=== PATIENT | female | born 1980 | race Caucasian/White ===

== ENCOUNTER → 2018-06-05 14:23 | Outpatient (CLI) | payer MEDICAID, SELFPAY ==
[2018-06-05 17:25] LABS: Chlamydia Trachomatis by PCR Negative (Negative); Neisserai gonorrhoeae by PCR Negative (Negative); Probe Check PASS; Sample Adequacy Control PASS; Specimen Processing Control PASS
[2018-06-08 10:58] LABS: HPV APTIMA, High Risk Negative (Negative)
== END ==
PROVIDERS: Visit Provider Obstetrics & Gynecology
DX: Z12.4 Encounter for screening for malignant neoplasm of cervix (principal); Z11.3 Encounter for screening for infections with a predominantly sexual mode of transmission
CPT/HCPCS: 87491; 87591; 87624; 88175; G0145

== ENCOUNTER → 2018-10-26 09:12 | Outpatient (CLI) | payer MEDICAID, SELFPAY ==
[2014-11-25 23:40] VITALS: BMI 32.5
[2018-10-26 12:28] LABS: Anion Gap 6 (5-15); BUN 13 mg/dL (7-18); Calcium,Total 8.5 mg/dL (8.5-10.1); Chloride 111 mmol/L (98-107); Creatinine, Serum 0.86 mg/dL (0.55-1.02); EST Glomerular Filtration Rate 79 mL/min (>60); Est Glom Filt Rate - Afr Amer 95 mL/min (>60); Glucose 71 mg/dL (74-106); Potassium 4.8 mmol/L (3.5-5.1); Sodium Level 138 mmol/L (136-145)
[2018-10-26 12:57] LABS: Absolute Lymphocyte Count 2.68 X10^3/uL (0.83-4.51); Absolute Neutrophil Count 5.5 X10^3/uL (2.0-7.7); Basophil% 1.1 % (0-1); Eosinophil# 0.17 X10^3/uL; Eosinophils% 1.9 % (0-5); Hematocrit 44.4 % (37-47); Hemoglobin 14.7 g/dL (12.0-15.0); Lymphocyte # 2.68 X10^3/ul (4.0); Lymphocyte % 29.3 % (19-41); Mean Corp Hgb Conc 33.1 g/dL (32-36); Mean Corpuscular Hgb 30.7 pg (27.0-32.0); Mean Corpuscular Volume 92.7 fL (81-99); Monocyte# 0.71 X10^3/uL; Monocyte% 7.8 % (0-10); NRBC Flagged by Analyzer 0 % (0-5); Neutrophil # 5.48 X10^3/uL (2.7-7.7); Neutrophil % 59.8 % (47-70); Platelet Count 278 K/mm3 (150-450); RBC Distribution Width CV 13.6 % (11.6-14.6); RBC Distribution Width SD 46.4 fl (35.1-43.9); Red Blood Count 4.79 M/mm3 (4.2-5.4); White Blood Count 9.2 K/mm3 (4.4-11.0)
[2018-10-26 12:59] LABS: Erythrocyte Sedimentation Rate 1 mm/hr (0-20)
== END ==
PROVIDERS: Family Provider Family Medicine; PCP Family Medicine; Referring Provider Family Medicine; Visit Provider Family Medicine
DX: M25.441 Effusion, right hand (principal)
CPT/HCPCS: 36415; 80048; 85025; 85652

== ENCOUNTER 2018-12-16 11:58 | Emergency (ER) | payer MEDICAID, SELFPAY ==
[2018-12-16 11:59] VITALS: BP 154/87; PULSE 107; RESP 16; TEMP 36.7; O2SAT 99; BMI 25.4
[2018-12-16 12:34] LABS: Bacteria 0 SEEN /hpf (None Seen); Mucous, Urine 0 SEEN /hpf (<or=2+); Red Blood Cells-Urine 0 SEEN /hpf (0-5); White Blood Cells 0 SEEN /hpf (0-5)
[2018-12-16 12:49] LABS: Color, Urine Yellow (Yellow); Glucose, Dipstick Normal (Normal); Internal QC Validated? YES +Cl - CLEAR BKGD; Ketone-Dipstick 5 mg/dl (Negative); Leukocyte Esterase-Dipstick Negative /ul (Negative); Nitrite-Dipstick Negative (Negative); Occult Blood-Urine Negative /ul (Negative); Protein-Dipstick 15 mg/dl (Negative); Urine Bilirubin Dipstick Negative (Negative); Urine Clarity Sl. Cloudy (Clear); Urine Urobilinogen Normal (Normal)
[2018-12-16 12:50] LABS: Pregnancy, Urine Negative Negative
--- NOTE | 2018-12-16 12:55 | ED.DCSUM_ITS ---
- ER Visit Summary Date of Service: 12/16/18 Chief Complaint: Vaginal discharge History of Present Illness: The patient is a 38 F presenting with vaginal discharge. Patient states this started 1.5 weeks ago. She states prior to the vaginal discharge starting she had sexual intercourse with her ex. She is concerned but unsure if she was exposed to STDs. She denies possibility of . She denies vaginal bleeding. Denies dysuria. Denies fever. Physical Examination: Vitals are stable. Patient is afebrile. Alert no acute distress. HEENT exam is unremarkable. Neck is supple. Lungs are clear and equal bilaterally. Heart is regular rate and rhythm. Abdomen is soft nontender nondistended. No guarding or rebound. : No cervical motion tenderness, no adnexal tenderness. No discharge, no bleeding. No rash. Extremities are unremarkable. Skin is warm and dry. Remainder of exam is unremarkable. Emergency Department Course and Treatment: Urinalysis unremarkable. hCG negative. GC chlamydia are pending. Patient was given Rocephin IM, Zithromax, Flagyl. She is advised to follow-up with her [employer]. Advised return to ED for worsening complaints. Disposition: Discharge home Impression: Vaginal discharge This note was generated with [employer] dictation software. It may contain incorrect words, spelling, and punctuation that were not noted in review of the chart prior to signing ED Disposition - Plan for ED Patient: Instructions: Understanding STDs Referrals: Remington Alatorre MD [Primary Care Provider] - Rubia Westbrook MD [STAFF PHYSICIAN] -
[2018-12-16 12:56] LABS: Calcium Oxalate Crystals Ur 2+ /hpf (<or=2+); Squamous Epithelial Cells - UA 0-5 SEEN /hpf (5-10)
--- NOTE | 2018-12-16 13:05 | ED.DEP ---
ED Disposition - Plan for ED Patient: Instructions: Understanding STDs Referrals: Remington Alatorre MD [Primary Care Provider] - Rubia Westbrook MD [STAFF PHYSICIAN] -
[2018-12-16] MEDS: metroNIDAZOLE 500 MG Tablet 2000 MG PO (13:39)
[2018-12-16] MEDS: Ceftriaxone 500 MG Vial 250 MG IM (13:39)
[2018-12-16] MEDS: Azithromycin 250 MG Tablet 1000 MG PO (13:39)
[2018-12-16 14:05] VITALS: RESP 18
[2018-12-16 14:41] LABS: Chlamydia Trachomatis by PCR Negative (Negative); Neisserai gonorrhoeae by PCR Negative (Negative); Probe Check PASS; Sample Adequacy Control PASS; Specimen Processing Control PASS
== END 2018-12-16 14:06 | disposition home or self-care (01) ==
LOC: ED 12:36
PROVIDERS: Emergency Provider Emergency Medicine; Family Provider Family Medicine; PCP Family Medicine
DX: N89.8 Other specified noninflammatory disorders of vagina (principal); Z72.0 Tobacco use
CPT/HCPCS: 81001; 81025; 87491; 87591; 96372; 99283

== ENCOUNTER → 2019-11-09 15:40 | Outpatient (CLI) | payer MEDICAID, SELFPAY ==
[2019-11-12 11:13] LABS: HIV - WCH Non-Reactive (Nonreactive); Hepatitis B Surface Antibody Non-Reactive; Hepatitis C Antibody Non-Reactive (Nonreactive)
[2019-11-15 11:06] LABS: Rapid Plasmin Reagin (RPR) NONREACTIVE (NONREACTIVE)
== END ==
PROVIDERS: PCP Family Medicine; Visit Provider Student in an Organized Health Care Education/Training Program
DX: Z11.3 Encounter for screening for infections with a predominantly sexual mode of transmission (principal)
CPT/HCPCS: 36415; 86592; 86703; 86706; 86803

== ENCOUNTER → 2021-02-03 11:50 | Outpatient (CLI) | payer MEDICAID, SELFPAY ==
--- NOTE | 2021-02-03 11:53 | RAD_ITS ---
STUDY: X-RAY - RIGHT HAND REASON FOR EXAM: Right hand pain, no specific injury. TECHNIQUE: 3 view(s) of the hand. COMPARISON: None. FINDINGS: Normal radiocarpal articulation. Normal distal radioulnar joint. Normal visualized carpal bones. Normal carpal articulations Normal carpometacarpal articulation of the thumb. Normal second through fifth carpometacarpal joints. Normal metacarpi. Normal metacarpophalangeal joint of the thumb. Normal interphalangeal joint of the thumb. Normal proximal and distal phalanges of the thumb. Normal metacarpophalangeal joints of the second through fifth fingers. Normal proximal and distal interphalangeal joints of the second through fifth fingers. Normal phalanges of the second through fifth fingers. The soft tissue structures are unremarkable. RAD/Hand Min 3 Views IMPRESSION: Normal x-ray examination of the right hand. Electronically Signed: Miquel Taveras MD at 12:53 EDT Tel , Service support ,
== END ==
PROVIDERS: PCP Family Medicine; Referring Provider Family Medicine; Visit Provider Family Medicine
DX: M79.644 Pain in right finger(s) (principal)
CPT/HCPCS: 73130

== ENCOUNTER 2021-04-21 13:15 | Outpatient (CLI) | payer MEDICAID, SELFPAY ==
[2021-04-23 00:07] LABS: Chlamydia By Nucleic Acid AMP Negative (Negative)
[2021-04-23 08:39] LABS: Gonococcus By Nucleic Acid AMP Negative (Negative)
[2021-04-24 09:56] LABS: HPV APTIMA, High Risk Negative (Negative)
== END 2021-04-21 23:59 | disposition short-term general hospital (02) ==
LOC: LABSPEC 13:16
PROVIDERS: PCP Family Medicine; Visit Provider Obstetrics & Gynecology
DX: Z12.4 Encounter for screening for malignant neoplasm of cervix (principal); Z11.3 Encounter for screening for infections with a predominantly sexual mode of transmission
CPT/HCPCS: 87491; 87591; 87624; 88175; G0145

== ENCOUNTER → 2021-07-21 | Outpatient (CLI) | payer MEDICAID, SELFPAY ==
--- NOTE | 2021-07-21 12:52 | BI_ITS ---
MAMMOGRAPHY - BILATERAL SCREENING 3-D TOMOSYNTHESIS REASON FOR EXAM: Female, 40 years old. SCREENING PERTINENT HISTORY: No significant family history. TECHNIQUE: 2-D mammograms and 3-D Tomosynthesis of the breast (s) were performed. CAD was performed. COMPARISON: None. FINDINGS: The breast composition is heterogeneously dense that can obscure small breast masses. Scattered benign calcifications are seen. No dense spiculated masses or suspicious microcalcifications are identified. No architectural distortion is identified. There is no skin thickening or retraction. There has been no significant change since the prior study. BI/SCRN MAMM (CAD)W/JUAN M BILAT IMPRESSION: No mammographic signs of malignancy. Routine yearly mammograms recommended. ASSESSMENT CATEGORY: BIRADS Category 1: Negative. A letter regarding these results will be sent to the patient by the facility within 30 days. FOLLOW UP RECOMMENDATION: Yearly follow up mammogram recommended. (A) Approximately 10% of breast cancers are not detected by mammography. A normal mammogram should not delay biopsy of a clinically suspicious abnormality. Electronically Signed: Tru Wells MD at 15:19 EDT ,
== END | disposition home or self-care (01) ==
LOC: OPBI 12:51
PROVIDERS: PCP Family Medicine; Visit Provider Obstetrics & Gynecology
DX: Z12.31 Encounter for screening mammogram for malignant neoplasm of breast (principal)
CPT/HCPCS: 77063; 77067

== ENCOUNTER → 2022-02-02 | Outpatient (CLI) | payer MEDICAID, SELFPAY ==
--- NOTE | 2022-02-02 12:28 | LES_PTH ---
PATIENT: LORY UMANZOR LOC: [facility] U#:[id number] AGE/SX: 41/F ROOM: RE02/02/[address]: Dr. Devyn Alatorre MD : 1980 BED: DIS: 02/02/2022 SPEC #: [id number] RECD: 02/02/22 15:08 STATUS: JEFF SAMANTHA #: [id number] DIANE: 02/02/22 12:[address]: Devyn Alatorre DEPT: SURGICAL PATHOLOGY RECD BY: Yun Lloyd Tissues: Abdomen, NOS Procedures: Surgery Specimen Level IV HEADER OPERATION: Excision left upper quadrant abdomen PRE-OP DIAGNOSIS: ? hemangioma TISSUE SUBMITTED: Left upper quadrant abdomen MICROSCOPIC DIAGNOSIS Skin lesion of left upper quadrant, punch biopsy: Capillary hemangioma. AM:ayesha 02/04/2022 MICROSCOPIC DESCRIPTION Slides are reviewed. GROSS DESCRIPTION Received in fixative is one container labeled with the patient's name and designated left upper quadrant. The specimen consists of a light granados punch biopsy of skin measuring 4 cm in diameter and 2 cm in thickness. The specimen is inked and totally submitted in one cassette. / AM:ayesha 02/03/2022 TC:5 CPT: 44776
== END | disposition home or self-care (01) ==
LOC: LABSPEC 15:15
PROVIDERS: PCP Family Medicine; Visit Provider Family Medicine
DX: D18.01 Hemangioma of skin and subcutaneous tissue (principal)
CPT/HCPCS: 88305

== ENCOUNTER → 2022-04-21 | Outpatient (CLI) | payer MEDICAID, SELFPAY ==
[2022-04-21 11:36] LABS: Hemoglobin 14.6 g/dL (12.0-15.0); Mean Corp Hgb Conc 32.4 g/dL (32-36); Mean Corpuscular Hgb 29.7 pg (27.0-32.0); Mean Corpuscular Volume 91.5 fL (81-99); Mean Platelet Vol. 9.8 fl (6.2-12.0); Platelet Count 345 K/mm3 (150-450); RBC Distribution Width CV 14.5 % (11.6-14.6); RBC Distribution Width SD 48.8 fl (35.1-43.9); Red Blood Count 4.92 M/mm3 (4.2-5.4); White Blood Count 11.6 K/mm3 (4.4-11.0)
[2022-04-21 12:14] LABS: Estradiol 54.3 pg/mL; Follicle Stimulating Hormone 11.2 mIU/mL; Prolactin 6.6 ng/mL; T4 Free Direct 0.82 ng/dL (0.76-1.46)
[2022-04-21 12:35] LABS: HIV - WCH Non-Reactive (Nonreactive); Progesterone Level 0.32 ng/mL (See Comment); Syphilis Antibodies Non-reactive
[2022-04-22 05:07] LABS: HEPATITIS B SURFACE AG Negative (Negative); Hepatitis B Core Ab Total Negative (Negative); Hepatitis C Ab <0.1 s/co ratio (0.0-0.9)
[2022-04-22 21:07] LABS: Chlamydia By Nucleic Acid AMP Negative (Negative)
[2022-04-23 13:08] LABS: Gonococcus By Nucleic Acid AMP Negative (Negative)
[2022-04-23 20:36] LABS: Hep B Surface Antibodies Non Reactive (.)
== END | disposition home or self-care (01) ==
LOC: WOBLAB 11:20
PROVIDERS: PCP Family Medicine; Visit Provider Student in an Organized Health Care Education/Training Program
DX: Z11.3 Encounter for screening for infections with a predominantly sexual mode of transmission (principal); N93.9 Abnormal uterine and vaginal bleeding, unspecified
CPT/HCPCS: 36415; 82670; 83001; 83002; 84144; 84146; 84439; 84443; 85027; 86703; 86704; 86705; 86706; 86707; 86780; 86803; 87340; 87350; 87491; 87591

== ENCOUNTER → 2022-08-05 | Outpatient (CLI) | payer MEDICAID, SELFPAY ==
--- NOTE | 2022-08-05 10:35 | BI_ITS ---
MAMMOGRAPHY - BILATERAL SCREENING REASON FOR EXAM: Female, 41 years old. Routine annual screening examination. PERTINENT HISTORY: Mother with breast cancer. Grandmother with breast cancer. TECHNIQUE: Digital bilateral breast juan m (3D mammographic acquisition) in the CC and MLO projections. 2-D mediolateral oblique (MLO) and craniocaudad (CC) views of both breasts were obtained. CAD: Full Field Digital Mammography with Computer Added Detection was performed. COMPARISON: Comparison is made with prior study dated July 21, 2021. FINDINGS: Breast Composition: The breasts are heterogeneously dense, which may obscure small masses. There are no dominant masses or suspicious calcifications. No other significant abnormalities are identified. There has been no significant change since the prior study. BI/SCRN MAMM (CAD)W/JUAN M BILAT IMPRESSION: Stable bilateral screening mammogram. Yearly follow-up mammogram recommended. (A) ASSESSMENT CATEGORY: BIRADS Category 1: Negative. A letter regarding these results will be sent to the patient by the facility within 30 days. Approximately 10% of breast cancers are not detected by mammography. A normal mammogram should not delay biopsy of a clinically suspicious abnormality. [id number] Electronically Signed: Jamir Grimm MD at 11:56 EDT ,
== END | disposition home or self-care (01) ==
LOC: OPBI 10:33
PROVIDERS: PCP Family Medicine; Referring Provider Student in an Organized Health Care Education/Training Program; Visit Provider Student in an Organized Health Care Education/Training Program
DX: Z12.31 Encounter for screening mammogram for malignant neoplasm of breast (principal); Z80.3 Family history of malignant neoplasm of breast
CPT/HCPCS: 77063; 77067

== ENCOUNTER 2022-09-25 15:32 | Emergency (ER) | payer MEDICAID, SELFPAY ==
[2022-09-25 15:32] VITALS: BP 139/91; PULSE 108; RESP 18; TEMP 36.6; O2SAT 99; BMI 29.0
--- NOTE | 2022-09-25 15:50 | EX.ED.VIS.EY ---
HPI History of Present Illness Chief Complaint: Eye Problem Detail of Chief Complaint: Left eye redness Informant: patient Onset/Context/Timing Location: Left Eye Onset: Today Narrative Narrative: Patient presents with redness and irritation to her left eye. She states that her children had pinkeye about a week and a half ago. She thought she had made it through without getting it. She has been remodeling her bathroom and has been exposed to a lot of dust and particles. Today she felt like she might have an eyelash in her left eye and now has redness and irritation. She does not wear contact lenses. PFSH PFSH Medical History no medical history no medical history Home Medications Ferrous Sulfate 325 mg PO BID 11/05/14 [History Last Taken 11/25/14 20:00 one] vits,calcium no.78-iron fumarate-folic acid 29 mg-1 mg tablet (Prenatabs FA) 1 tab PO DAILY 11/08/14 [History Last Taken 11/25/14 20:00 one] bupropion HCl (smoking deter) 150 mg tablet,12 hr sustained-release(smoking deterrent) (Zyban) 150 mg PO BID 11/12/14 [History Last Taken 11/25/14 09:00 one] docusate sodium 50 mg capsule (Colace Clear) 100 mg PO BID PRN Constipation ##60 11/29/14 [Rx Last Taken Unknown] naproxen 250 mg tablet 250 - 500 mg PO BID PRN PRN Mild Pain ##40 11/29/14 [Rx Last Taken Unknown] oxycodone 5 mg tablet 5 - 10 mg PO Q4H PRN PRN Severe Pain ##30 11/29/14 [Rx Last Taken Unknown] Allergy/AdvReac Type Severity Reaction Status Date / Time No Known Allergies Allergy Verified 09/25/22 15:35 Social History Smoking Status: Never smoker ROS ROS ED Constitutional Constitutional ED: Denies chills or fever(s) Eyes Eyes: Reports discharge from eye(s); Denies change in vision ENT ENT ED: Reports discharge from eye(s); Denies rhinorrhea or sore throat Cardiovascular Cardiovascular: Denies chest pain Respiratory/Chest Respiratory/Chest: Denies cough or dyspnea Gastrointestinal Gastrointestinal: Denies abdominal pain, nausea or vomiting Musculoskeletal Musculoskeletal: Denies back pain or extremity pain Integumentary Denies Abrasions or rash Neurologic Neurologic: Denies headache(s) or weakness Psychiatric Psychiatric: Denies anxiety or depression Allergic/Immunologic Allergic/Immunologic ED: Denies lip swelling or urticaria EXAM Physical Exam Const Vital Signs: 09/25/22 15:32 Temperature 98 F Temperature Source Temporal Pulse Rate 108 H Respiratory Rate 18 Blood Pressure 139/91 H Blood Pressure Mean 107 Pulse Ox 99 Oxygen Delivery Method Room Air Positive well nourished and well developed General Appearance ED: well developed HEENT HEENT Narrative: Left eye injected and watering. Neck no lymphadenopathy Resp normal respiratory effort Cardio regular rate and regular rhythm GI non-tender Extremity normal to inspection Neuro oriented x3 Skin no wounds MDM MDM MDM Narrative Medical decision making narrative: Tetracaine is applied to the left eye. Left eye is examined with no obvious foreign body noted. I did evaluate the undersurface of her upper eyelids as well. Fluorescein is applied. I do not see any obvious linear abrasions. Patient's history is most consistent with abrasion. She be treated with erythromycin ophthalmic ointment. She will be given phone number for ophthalmology follow-up as needed. Discharge Plan Triage Chief Complaint: Eye Problem ED Provider: Mary Barajas Dx/Rx/DC Orders Clinical Impression: Corneal abrasion Instructions: ED Corneal Abrasion Prescriptions: No Action Ferrous Sulfate 325 mg PO BID vit,[id number] [Prenatabs FA] 1 TABLET tablet 1 tab PO DAILY bupropion HCl (smoking deter) [Zyban] 150 MG tablet extended release 12 hr 150 mg PO BID naproxen 250 MG tablet 250 - 500 mg PO BID PRN PRN (Reason: Mild Pain) Qty: 40 0RF docusate sodium [Colace Clear] 50 MG capsule 100 mg PO BID PRN (Reason: Constipation) Qty: 60 0RF oxycodone 5 MG tablet 5 - 10 mg PO Q4H PRN PRN (Reason: Severe Pain) Qty: 30 0RF Primary Care Provider: Remington Alatorre Referrals: Remington Alatorre MD [Primary Care Provider] - Homer Jc MD [Med Staff - Active Staff] - As Needed Activity Restrictions/Additional Instructions: Please apply erythromycin ointment to your affected eye 4 times daily until symptoms are resolved for 24 hours. Disposition Disposition: Home, Self Care
[2022-09-25] MEDS: Fluorescein 1 MG STRIP 1 STRIP LEFT EYE (16:02)
[2022-09-25] MEDS: Tetracaine 0.5% Ophthalmic Bottle 1 DRP LEFT EYE (16:02)
[2022-09-25] MEDS: Erythromycin Base 1 OPTH.TUBE 1 APPLIC LEFT EYE (16:15)
== END 2022-09-25 16:15 | disposition home or self-care (01) ==
PROVIDERS: Emergency Provider Emergency Medicine; PCP Family Medicine; Visit Provider Emergency Medicine
DX: S05.02XA Injury of conjunctiva and corneal abrasion without foreign body, left eye, initial encounter (principal); X58.XXXA Exposure to other specified factors, initial encounter
CPT/HCPCS: 99282

== ENCOUNTER → 2023-05-19 | Outpatient (CLI) | payer MEDICAID, SELFPAY ==
--- NOTE | 2023-05-19 10:33 | RAD_ITS ---
INDICATION: pain EXAMINATION/TECHNIQUE: X-RAY - RIGHT XR Shoulder Min 2 Views COMPARISON: No previous relevant examinations for comparison. FINDINGS: SOFT TISSUES: No soft tissue swelling or gas. No radiopaque foreign body. BONES/JOINTS: 1. No acute fracture or subluxation.. Normal alignment. Preservation of the joint space.. No sclerotic or destructive changes observed. 2. There is normal glenohumeral motion. There is mildly irregular appearance of the clavicular and of the AC joint. Periarticular erosions are consideration. 3. The clavicle, acromion, scapula and RIGHT rib cage have normal appearance. RAD/Shoulder min 2 Views IMPRESSION: 1. No evidence fracture dislocation or malalignment. 2. Subtle erosion of the clavicular side of the RIGHT AC joint. Periarticular inflammatory erosions are consideration. 3. No other focal bony abnormality noted. Electronically Signed: Tru Hernandez MD at 21:47 EST ,
== END | disposition home or self-care (01) ==
PROVIDERS: PCP Family Medicine; Referring Provider Family Medicine; Visit Provider Family Medicine
DX: M25.9 Joint disorder, unspecified (principal)
CPT/HCPCS: 73030

== ENCOUNTER 2023-06-13 23:54 | Emergency (ER) | payer MEDICAID, SELFPAY ==
[2023-06-13 23:55] VITALS: BP 160/109; PULSE 44; RESP 18; TEMP 35.6; O2SAT 100; BMI 33.4
--- NOTE | 2023-06-14 00:11 | CT_ITS ---
EXAM: CT ABDOMEN AND PELVIS WITHOUT INTRAVENOUS CONTRAST CLINICAL INDICATION: Kidney Stone TECHNIQUE: Helically acquired images were obtained of the abdomen and pelvis without intravenous contrast. This CT exam was performed using one or more of the following dose reduction techniques: automated exposure control, adjustment of the mA and/or kV according to patient size, and/or use of iterative reconstruction technique. RADIATION DOSE: CTDIvol = 14.41 mGy, DLP = 738.02 mGy-cm COMPARISON: No relevant prior studies available. FINDINGS: LOWER THORAX: Unremarkable. Lung bases are clear. No cardiomegaly. No significant pericardial effusion. ABDOMEN: LIVER: Unremarkable. Homogeneous. GALLBLADDER AND BILE DUCTS: Unremarkable. No calcified gallstones. No gallbladder distention or wall edema. No intra- or extrahepatic biliary ductal dilation. PANCREAS: Unremarkable. No focal cystic mass. SPLEEN: Unremarkable. Normal size without focal cystic or solid mass. ADRENALS: Unremarkable. No nodules. KIDNEYS AND URETERS: Moderate left hydronephrosis due to an irregular stone measuring 4.5 x 3.5 x 5 mm in the proximal left ureter. Tiny nonobstructing renal calculi bilaterally. Normal renal size and position. STOMACH AND BOWEL: Moderate amount of fecal material throughout the colon. No stomach or bowel distention. No focal inflammatory change. PELVIS: APPENDIX: Normal appendix. BLADDER: Unremarkable. REPRODUCTIVE: Unremarkable as visualized. No mass. ABDOMEN and PELVIS: INTRAPERITONEAL SPACE: Unremarkable. No ascites or other fluid collection. No free air. BONES/JOINTS: Unremarkable. No suspicious lytic or blastic abnormality. SOFT TISSUES: Unremarkable. No discrete abdominal or pelvic wall hernia. VASCULATURE: Unremarkable. Abdominal aorta is non-dilated. LYMPH NODES: Unremarkable. No enlarged lymph nodes. CT/Abdomen/Pelvis without Cont IMPRESSION: 1. Moderate left hydronephrosis due to an irregular stone measuring 4.5 x 3.5 x 5 mm in the proximal left ureter. 2. Tiny nonobstructing renal calculi bilaterally. 3. Constipation. Electronically Signed: Garth Ngo MD at 2:10 EDT ,
--- NOTE | 2023-06-14 00:12 | EX.ED.DYSGE1 ---
HPI History of Present Illness Chief Complaint: Abd Pain Informant: patient and EMS Narrative Narrative: 42-year-old female presenting to the emergency room with chief complaint of left lower abdominal pain. Patient states symptoms began abruptly at 2100 hrs. She notes associated nausea and vomiting. She describes the pain as severe unable to find a position of comfort and radiating to her left flank. Patient states that her kids have been sick and that she does not believe this this is a kidney stone. When asked why she states that her ex had 1 and this is not it. She denies any diarrhea. She has had normal urination today. She states she currently has a fever because she is in pain and vomiting. By this she is meaning that she feels hot and flushed. Her temperature is 96.1 per nursing. Patient denies any prior surgeries. She denies any medical problems. She is not taking any medications. She then tells me that she was recently started taking something for anxiety that is kavita some shit like that . PFSH PFSH Home Medications Ferrous Sulfate 325 mg PO BID 11/05/14 [History Last Taken 11/25/14 20:00 one] cephalexin 500 mg capsule 500 mg PO BID 5 days #10 caps 06/14/23 [Rx Last Taken Unknown] hydroxyzine HCl 25 mg tablet 25 mg PO BID PRN PRN anxiety 06/14/23 [History Last Taken Unknown] ketorolac 10 mg tablet 10 mg PO Q8H PRN pain 3 days #10 tabs 06/14/23 [Rx Last Taken Unknown] ondansetron 4 mg disintegrating tablet 4 mg PO Q6H PRN PRN Nausea #10 tabs 06/14/23 [Rx Last Taken Unknown] oxycodone-acetaminophen 5 mg-325 mg tablet (Percocet) 1 tab PO Q4H PRN pain 3 days #12 tabs 06/14/23 [Rx Last Taken Unknown] Allergy/AdvReac Type Severity Reaction Status Date / Time No Known Allergies Allergy Verified 09/25/22 15:35 Social History Smoking Status: Never smoker ROS ROS ED Constitutional Constitutional ED: Reports sweats; Denies chills, fever(s) or weight loss Eyes Eyes: Denies change in vision or diplopia ENT ENT ED: Denies ear pain, rhinorrhea or sore throat Cardiovascular Cardiovascular: Denies chest pain, orthopnea, palpitations or racing heartbeat Respiratory/Chest Respiratory/Chest: Denies cough, dyspnea or orthopnea Gastrointestinal Gastrointestinal: Reports abdominal pain, nausea and vomiting; Denies constipation or diarrhea Genitourinary Genitourinary ED: Denies dysuria, hematuria or urinary frequency Musculoskeletal Musculoskeletal: Denies arthralgias or myalgias Integumentary Denies abscess or rash Neurologic Neurologic: Denies headache(s) or weakness Psychiatric Psychiatric: Denies anxiety, depression, suicidal ideation or suicidal thoughts Endocrine Endocrinology: Denies polydipsia, polyphagia or polyuria Allergic/Immunologic Allergic/Immunologic ED: Denies mouth swelling, tongue swelling or urticaria EXAM Physical Exam Narrative Exam Narrative: Patient is writhing on the bed. Const Vital Signs: 06/13/23 23:55 06/14/23 01:54 Temperature 96.1 F L Temperature Source Temporal Pulse Rate 44 L 74 Respiratory Rate 18 18 Blood Pressure 160/109 H 148/99 H Blood Pressure Mean 126 115 Pulse Ox 100 99 Oxygen Delivery Method Room Air Room Air Positive well nourished and well developed General Appearance ED: well developed HEENT Reports normocephalic, head/scalp atraumatic and moist mucous membranes Eyes PERRL and EOMs intact bilaterally Neck no lymphadenopathy, supple and no JVD Resp normal respiratory effort and clear to auscultation bilaterally Cardio regular rate, regular rhythm and no murmurs GI Palpation: soft and tender LLQ; Negative for guarding or rebound tenderness present Back/Spine no CVA tenderness and normal ROM Extremity normal to inspection General Extremety ED: Negative for edema General Extremity: Negative for edema Neuro oriented x3 and CN's II-XII intact bilaterally Sensorium / Orientation: alert Motor Exam: strength 5/5 throughout Psych mental status grossly normal Mood & Affect: Negative for depressed or tearful Skin no rashes or lesions noted and no wounds MDM MDM MDM Narrative Medical decision making narrative: Patient received IV fluids Toradol morphine and Zofran. Her pain and symptoms are significantly improved. Initially the patient was bradycardic I think was most likely having a bit of a vagal reaction and she was sweaty and nauseated and vomiting and having pain. However this subsided. White count is 13.2. Creatinine is 1.08. Urinalysis is greater than 100 red blood cells 0-5 white cells positive nitrates and leukocyte esterase 1+ bacteria. This will be sent for culture. CT demonstrates a mid ureteral 5 mm stone with associated hydronephroureter. I will write for the patient have pain and nausea medications in addition to antibiotics at home. I talked about return instructions as well as follow-up and she notes understanding. History & Record Review Discussion w/independent historian: EMS personnel and Patient Lab Data Attestation: I reviewed the patient's lab results. Labs: Laboratory Results - last 24 hr 06/14/23 06/14/23 00:22 02:24 WBC 13.2 H RBC 4.90 Hgb 14.3 Hct 44.5 MCV 90.8 MCH 29.2 MCHC 32.1 RDW Std Deviation 49.8 H RDW Coeff of Jasbir 14.9 H Plt Count 270 MPV 11.4 Immature Gran % (Auto) 0.400 Neut % (Auto) 56.4 Lymph % (Auto) 32.8 [place] % (Auto) 7.1 Eos % (Auto) 2.5 Baso % (Auto) 0.8 Absolute Neuts (auto) 7.5 Absolute Lymphs (auto) 4.33 Nucleated RBC % 0 Sodium 142 Potassium 4.4 Chloride 109 H Carbon Dioxide 26.0 Anion Gap 7 BUN 17 Creatinine 1.08 H Estim Creat Clear Calc 80.12 Est GFR (MDRD) Af Amer 72 Est GFR (MDRD) Non-Af 60 BUN/Creatinine Ratio 15.7 Glucose 95 Calcium 9.6 Serum , Qual NEGATIVE Urine Color Red Urine Clarity Cloudy Urine pH 5.0 Ur Specific [place] 1.025 Urine Protein 100 H Urine Glucose (UA) Normal Urine Ketones 5 H Urine Occult Blood 250 H Urine Nitrite Positive H Urine Bilirubin 1 H Urine Urobilinogen Normal Ur Leukocyte Esterase 100 H Urine RBC > 100 SEEN Urine WBC 0-5 SEEN Ur Squamous Epith Cells 0 SEEN Urine Bacteria 1+ Urine Mucus 0 SEEN Radiography Diagnostic Testing: Clinical Impression(s) from Imaging Studies Abdomen/Pelvis CT 06/14/23 00:11 IMPRESSION: 1. Moderate left hydronephrosis due to an irregular stone measuring 4.5 x 3.5 x 5 mm in the proximal left ureter. 2. Tiny nonobstructing renal calculi bilaterally. 3. Constipation. Electronically Signed: Garth Ngo MD at 2:10 EDT , Discharge Plan Triage Chief Complaint: Abd Pain ED Provider: Pepe Macdonald Dx/Rx/DC Orders Clinical Impression: Ureterolithiasis, Renal colic on left side, Abdominal pain, Vomiting Instructions: ED Kidney Stone with Pain Prescriptions: New oxycodone-acetaminophen [Percocet] 5-325 mg tablet 1 tab PO Q4H PRN (Reason: pain) 3 Days Qty: 12 0RF ondansetron [ondansetron] 4 mg tablet,disintegrating 4 mg PO Q6H PRN PRN (Reason: Nausea) Qty: 10 0RF ketorolac 10 mg tablet 10 mg PO Q8H PRN (Reason: pain) 3 Days Qty: 10 0RF cephalexin 500 mg capsule 500 mg PO BID 5 Days Qty: 10 0RF No Action Ferrous Sulfate 325 mg PO BID hydroxyzine HCl 25 mg tablet 25 mg PO BID PRN PRN (Reason: anxiety) Primary Care Provider: Remington Alatorre Referrals: Remington Alatorre MD [Primary Care Provider] -
--- OUTSIDE RECORDS SUMMARY | 2023-06-14 00:24 | XMS RPT_ITS | CCD ---
Author Name Unknown Address [address] [place] [address] Organization [facility] Care Team Providers Care Mortician Helper Name Role Phone Unavailable Primary Care Provider Unavailabl e Medications Current Medications Medication Drug Class(es) Dates Sig (Normalized) Sig (Original) ofloxacin 3 mg/ml otic solution (1 source) Quinolone Antimicrobial Start: 01-18-2023 End: 01-25-2023 ofloxacin (FLOXIN) 0.3 % otic solution Use 10 Drops in the left ear once daily for 7 days. 4 mL 0 01/18/2023 01/25/2023 Active Problems Problem Classification Problem Date Documented Da te Episodic/Chronic Other ear and sense organ disorders (1 source) Acute otitis externa of left ear; Translations: [Unspecified acute noninfective otitis externa, left ear] 01-18-2023 Episodic Results Test Name Value Interpretation Reference Range Facil ity Vital Signs Date Time Vital Sign Value Performing Clinician Faci lity 01-18-2023 17:05-0400 Body temperature 97.3 [degF] Abel Hayes APRN.NECKTIE TURNER Work Phone: [facility] 01-18-2023 17:05-0400 Body weight 98.88 kg Abel Hayes HOSPITAL COORDINATOR.NECKTIE TURNER Work Phone: [facility] 01-18-2023 17:05-0400 Diastolic blood pressure 84 mm[Hg] Abel Hayes HOSPITAL COORDINATOR.NECKTIE TURNER Work Phone: [facility] 01-18-2023 17:05-0400 Heart rate 88 /min Abel Hayes HOSPITAL COORDINATOR.NECKTIE TURNER Work Phone: [facility] 01-18-2023 17:05-0400 Respiratory rate 16 /min Abel Hayes APRN.CNP Work Phone: [facility] 01-18-2023 17:05-0400 SaO2% (BldA) [Mass fraction] 99 % Abel Hayes APRN.CNP Work Phone: [facility] 01-18-2023 17:05-0400 Systolic blood pressure 132 mm[Hg] Abel Hayes APRN.CNP Work Phone: [facility] Encounters Encounter Date Encounter Type Care Provider Facility Start: 01-18-2023 End: 01-18-2023 ambulatory Facility:[facility] Start: 01-18-2023 End: 01-18-2023 Office outpatient visit 15 minutes Abel Hayes APRN.CNP Work Phone: [facility] Plan of Treatment Date Care Activity Detail Author Start: 09-09-2024 Urine microalbumin profile DTa P,Tdap,Td Vaccine (2 - Td or Tdap) [facility] Start: 12-03-2022 Covid-19 Vaccine (2022- season) Covid-19 Vaccine ( season) [facility] Start: 12-03-2022 Influenza vaccination Influenza Vacc ine (#1) [facility] Start: 2022 Mammography Mammogram Screening [facility] Start: 04-04-2022 Depression Assessment Depression Ass essment [facility] Start: 2012 HPV Testing HPV Testing [facility] Start: 10-15-2003 Pap Testing Pap Testing [facility] Start: 2000 Hepatitis C Screening Hepatitis C Sc reening [facility] Start: 2000 HIV Screening HIV Screening [facility] Start: 1982 Hepatitis B Vaccine (1 of 3 - 3-dose series) Hepatitis B Vaccine (1 of 3 - 3-dose series) [facility] Immunizations Immunization Date Immunization Notes Care Provider Kristofer heredia 01-26-2022 influenza virus vaccine, unspecified formulation Abel Hayes APRN.CNP Work Phone: [facility] Payers Date Payer Category Payer Medicaid [employer] [id number] 2023-Present [phone] [address] [place] [address] Medicaid [id number] 2023 Medicaid PENDING Social History Date Type Detail Facility [facility] consumption unknown [facility] Start: 1982 Sex Assigned At Not on file [facility] Gender identity Not on file [facility] inic Progress note 01-18-2023 Note Date & Type Note Facility 01-18-2023 Note HNO ID: [id number] Author: Abel Hayes APRN.NECKTIE TURNER Service: ? Author Type: Nurse Practitioner Type: Progress Notes Filed: 01/18/2023 5:35 PM Note Text: Subjective HPI Nontoxic-appearing female presents urgent care chief complaint left ear pain. Duration of symptoms 1 week. Associated symptoms left ear pain muffled hearing. Has been using Debrox and suction to try to remove earwax. No success. Presents today with decreased hearing worsening ear pain. No ear trauma. No otorrhea. No loss of hearing. No sick contacts. Denies any fever body aches chills productive cough chest pain shortness of breath pleuritic pain hemoptysis nausea vomiting abdominal pain change in bowel or bladder habits. Past medical history prescription medication use and allergies reviewed. .Patient presents with: Ear Problem: left ? wax x 1 week using debrox History reviewed. No pertinent past medical history. History reviewed. No pertinent surgical history. ALLERGIES Patient has no known allergies. MEDICATIONS No prescriptions on file. History reviewed. No pertinent family history. BP 132/84 Pulse 88 Temp 36.3 ?C (97.3 ?F) Resp 16 Wt 98.9 kg (218 lb) SpO2 99% Review of Systems Constitutional: Negative for chills, fever and malaise/fatigue. HENT: Positive for ear pain. Negative for congestion, ear discharge, sinus pain and sore throat. Eyes: Negative for blurred vision, pain, discharge and redness. Respiratory: Negative for cough, hemoptysis, sputum production, shortness of breath, wheezing and stridor. Cardiovascular: Negative for chest pain. Gastrointestinal: Negative for abdominal pain, diarrhea, nausea and vomiting. Musculoskeletal: Negative for myalgias. Skin: Negative for itching and rash. Neurological: Negative for dizziness and headaches. Objective Physical Exam Constitutional: General: She is not in acute distress. Appearance: She is not diaphoretic. HENT: Head: Normocephalic. Jaw: No trismus, tenderness, swelling or pain on movement. Right Ear: Hearing, tympanic membrane, ear canal and external ear normal. No mastoid tenderness. Left Ear: Tympanic membrane and ear canal normal. Decreased hearing noted. Swelling and tenderness present. No drainage. No mastoid tenderness. Mouth/Throat: Mouth: Mucous membranes are moist. Pharynx: Oropharynx is clear. Uvula midline. No pharyngeal swelling, oropharyngeal exudate, posterior oropharyngeal erythema or uvula swelling. Eyes: Conjunctiva/sclera: Conjunctivae normal. Pupils: Pupils are equal, round, and reactive to light. Cardiovascular: Rate and Rhythm: Normal rate and regular rhythm. Heart sounds: Normal heart sounds. Pulmonary: Effort: Pulmonary effort is normal. No tachypnea, accessory muscle usage or respiratory distress. Breath sounds: Normal breath sounds. No stridor. No wheezing, rhonchi or rales. Abdominal: General: There is no distension. Palpations: Abdomen is soft. Tenderness: There is no abdominal tenderness. There is no guarding or rebound. Musculoskeletal: Cervical back: Normal range of motion and neck supple. No edema, erythema, rigidity or tenderness. No pain with movement. Normal range of motion. Lymphadenopathy: Cervical: No cervical adenopathy. Skin: General: Skin is warm and dry. Neurological: Mental Status: She is alert and oriented to person, place, and time. ASSESSMENT/PLAN: 1. Acute otitis externa of left ear, unspecified type - ICD9: 380.10, ICD10: H60.502 No external erythema edema noted of ear. No evidence of perichondritis. No evidence of mastoiditis. Treat as otitis externa. Placed on ofloxacin otic drops. Red flags prompt reevaluation discussed. Patient was educated on supportive therapies. Patient will follow up with primary care provider as needed. Patient was instructed to immediately proceed to emergency room for any new, worsening, or symptoms lasting longer than anticipated. The patient's clinical presentation is otherwise unremarkable at this time. Based on exam and clinical finding, the patient is stable for discharge. Plan of care was discussed with patient. Patient verbalizes understanding and agrees to plan of care. This note was generated using Roojoom software. It may contain errors in wording, punctuation, or spelling. Abel Hayes APRN.CHAUNCEY [facility] History of Present illness Narrative 01-18-2023 Abel Hayes APRN.CHAUNCEY - 01/18/2023 5:07 PM EDT Note Date & Type Note Facility 01-18-2023 History of Presen t illness Narrative Subjective HPI Nontoxic-appearing female presents urgent care chief complaint left ear pain. Duration of symptoms 1 week. Associated symptoms left ear pain muffled hearing. Has been using Debrox and suction to try to remove earwax. No success. Presents today with decreased hearing worsening ear pain. No ear trauma. No otorrhea. No loss of hearing. No sick contacts. Denies any fever body aches chills productive cough chest pain shortness of breath pleuritic pain hemoptysis nausea vomiting abdominal pain change in bowel or bladder habits. Past medical history prescription medication use and allergies reviewed. .Patient presents with: Ear Problem: left ? wax x 1 week using debrox History reviewed. No pertinent past medical history. History reviewed. No pertinent surgical history. ALLERGIES Patient has no known allergies. MEDICATIONS No prescriptions on file. History reviewed. No pertinent family history. BP 132/84 Pulse 88 Temp 36.3 C (97.3 F) Resp 16 Wt 98.9 kg (218 lb) SpO2 99% Review of Systems Constitutional: Negative for chills, fever and malaise/fatigue. HENT: Positive for ear pain. Negative for congestion, ear discharge, sinus pain and sore throat. Eyes: Negative for blurred vision, pain, discharge and redness. Respiratory: Negative for cough, hemoptysis, sputum production, shortness of breath, wheezing and stridor. Cardiovascular: Negative for chest pain. Gastrointestinal: Negative for abdominal pain, diarrhea, nausea and vomiting. Musculoskeletal: Negative for myalgias. Skin: Negative for itching and rash. Neurological: Negative for dizziness and headaches. Objective Physical Exam Constitutional: General: She is not in acute distress. Appearance: She is not diaphoretic. HENT: Head: Normocephalic. Jaw: No trismus, tenderness, swelling or pain on movement. Right Ear: Hearing, tympanic membrane, ear canal and external ear normal. No mastoid tenderness. Left Ear: Tympanic membrane and ear canal normal. Decreased hearing noted. Swelling and tenderness present. No drainage. No mastoid tenderness. Mouth/Throat: Mouth: Mucous membranes are moist. Pharynx: Oropharynx is clear. Uvula midline. No pharyngeal swelling, oropharyngeal exudate, posterior oropharyngeal erythema or uvula swelling. Eyes: Conjunctiva/sclera: Conjunctivae normal. Pupils: Pupils are equal, round, and reactive to light. Cardiovascular: Rate and Rhythm: Normal rate and regular rhythm. Heart sounds: Normal heart sounds. Pulmonary: Effort: Pulmonary effort is normal. No tachypnea, accessory muscle usage or respiratory distress. Breath sounds: Normal breath sounds. No stridor. No wheezing, rhonchi or rales. Abdominal: General: There is no distension. Palpations: Abdomen is soft. Tenderness: There is no abdominal tenderness. There is no guarding or rebound. Musculoskeletal: Cervical back: Normal range of motion and neck supple. No edema, erythema, rigidity or tenderness. No pain with movement. Normal range of motion. Lymphadenopathy: Cervical: No cervical adenopathy. Skin: General: Skin is warm and dry. Neurological: Mental Status: She is alert and oriented to person, place, and time. ASSESSMENT/PLAN: 1. Acute otitis externa of left ear, unspecified type - ICD9: 380.10, ICD10: H60.502 No external erythema edema noted of ear. No evidence of perichondritis. No evidence of mastoiditis. Treat as otitis externa. Placed on ofloxacin otic drops. Red flags prompt reevaluation discussed. Patient was educated on supportive therapies. Patient will follow up with primary care provider as needed. Patient was instructed to immediately proceed to emergency room for any new, worsening, or symptoms lasting longer than anticipated. The patient's clinical presentation is otherwise unremarkable at this time. Based on exam and clinical finding, the patient is stable for discharge. Plan of care was discussed with patient. Patient verbalizes understanding and agrees to plan of care. This note was generated using Roojoom software. It may contain errors in wording, punctuation, or spelling. Abel Hayes APRN.CHAUNCEY documented in this encounter [facility] Evaluation note Note Date & Type Note Facility documented in this encounter [facility] Summary Purpose Family History No Family History Records Found Advance Directives No Advanced Directives Records Found Additional Source Comments Source Comments (unrecognize d section and content) In the event this informatio n is protected by the Federal Confidentiality of Alcohol and Drug Abuse Patient Records regulations: The Federal rules restrict any use of the information to criminally investigate or prosecute any alcohol or drug abuse patient.[facility] Reason for Visit (unrecogniz ed section and content) INFORMATION SOURCE (unrecogn ized section and content) FOR RECORDS PERTAINING TO PATIENTS WHO ARE OR HAVE BEEN ENROLLED IN A CHEMICAL DEPENDENCY/SUBSTANCEABUSE PROGRAM, SOME INFORMATION MAY BE OMITTED. This clinical summary was aggregated from multiple sources. Caution should be exercised in using it in the provision of clinical care. This summary normalizes information from multiple sources, and as a consequence, information in this document may materially change the coding, format and clinical context of patient data. In addition, data may be omitted in some cases. CLINICAL DECISIONS SHOULD BE BASED ON THE PRIMARY CLINICAL RECORDS. [facility]. provides no warranty or guarantee of the accuracy or completeness of information in this document.
[2023-06-14] MEDS: Ketorolac 30 MG/ML Syringe IV (00:53)
[2023-06-14] MEDS: Ondansetron 4 MG/2 ML Vial IV (00:53)
[2023-06-14] MEDS: Morphine 4 MG/ML Syringe IV (00:54)
[2023-06-14] MEDS: 0.9% Normal Saline (1000mL) 1,000 ML 250 ML IV (00:54)
[2023-06-14 01:08] LABS: Absolute Lymphocyte Count 4.33 X10^3/uL (0.83-4.51); Absolute Neutrophil Count 7.5 X10^3/uL (2.0-7.7); Basophil# 0.11 X10^3/uL; Basophil% 0.8 % (0-1); Eosinophil# 0.33 X10^3/uL; Eosinophils% 2.5 % (0-5); Hematocrit 44.5 % (37-47); Hemoglobin 14.3 g/dL (12.0-15.0); Lymphocyte # 4.33 X10^3/ul (0.83-4.51); Lymphocyte % 32.8 % (19-41); Mean Corp Hgb Conc 32.1 g/dL (32-36); Mean Corpuscular Hgb 29.2 pg (27.0-32.0); Mean Corpuscular Volume 90.8 fL (81-99); Mean Platelet Vol. 11.4 fl (6.2-12.0); Monocyte# 0.94 X10^3/uL; Monocyte% 7.1 % (0-10); NRBC Flagged by Analyzer 0 % (0-5); Neutrophil # 7.46 X10^3/uL (2.7-7.7); Neutrophil % 56.4 % (47-70); Platelet Count 270 K/mm3 (150-450); RBC Distribution Width CV 14.9 % (11.6-14.6); RBC Distribution Width SD 49.8 fl (35.1-43.9); White Blood Count 13.2 K/mm3 (4.4-11.0)
[2023-06-14 01:28] LABS: Internal QC Validated? YES +Cl - CLEAR BKGD; Pregnancy, Serum, hCG Quali. NEGATIVE Negative
[2023-06-14 01:54] VITALS: BP 148/99; PULSE 74; RESP 18; O2SAT 99
[2023-06-14 01:56] LABS: Anion Gap 7 (5-15); BUN 17 mg/dL (7-18); BUN/Creat Ratio 15.7 RATIO (10-20); Calcium,Total 9.6 mg/dL (8.5-10.1); Chloride 109 mmol/L (98-107); Creatinine, Serum 1.08 mg/dL (0.55-1.02); EST Glomerular Filtration Rate 60 mL/min (>60); Est Glom Filt Rate - Afr Amer 72 mL/min (>60); Estimated Creatinine Clearance 80.12 ml/min; Glucose 95 mg/dL (74-106); Potassium 4.4 mmol/L (3.5-5.1); Sodium Level 142 mmol/L (136-145)
[2023-06-14 02:31] LABS: Mucous, Urine 0 SEEN /hpf (<or=2+); Squamous Epithelial Cells - UA 0 SEEN /hpf (5-10)
[2023-06-14 02:35] LABS: Color, Urine Red (Yellow); Glucose, Dipstick Normal (Normal); Ketone-Dipstick 5 mg/dl (Negative); Leukocyte Esterase-Dipstick 100 /ul (Negative); Nitrite-Dipstick Positive (Negative); Occult Blood-Urine 250 /ul (Negative); Protein-Dipstick 100 mg/dl (Negative); Specific Gravity, Urine 1.025 (1.002-1.030); Urine Clarity Cloudy (Clear); Urine Urobilinogen Normal (Normal)
[2023-06-14 03:00] VITALS: BP 112/79; PULSE 101; RESP 16; O2SAT 99
[2023-06-14 03:00] LABS: Bacteria 1+ /hpf (None Seen); Red Blood Cells-Urine > 100 SEEN /hpf (0-5); Urine Bilirubin Dipstick 1 mg/dL (Negative); White Blood Cells 0-5 SEEN /hpf (0-5)
[2023-06-14 03:23] VITALS: BP 120/81; PULSE 68; RESP 12; TEMP 36.9; O2SAT 100
== END 2023-06-14 03:27 | disposition home or self-care (01) ==
PROVIDERS: Emergency Provider Emergency Medicine; PCP Family Medicine; Visit Provider Emergency Medicine
DX: N13.2 Hydronephrosis with renal and ureteral calculous obstruction (principal); N23 Unspecified renal colic; R11.2 Nausea with vomiting, unspecified
CPT/HCPCS: 74176; 80048; 81001; 84703; 85025; 87077; 87086; 87088; 87186; 96361; 96374; 96375; 99283; J7030; A4216; J2405

== ENCOUNTER 2023-09-04 12:33 | Emergency (ER) | payer MEDICAID, SELFPAY ==
[2023-09-04 12:33] VITALS: BP 146/101; PULSE 111; RESP 16; TEMP 36.4; O2SAT 100; BMI 32.3
[2023-09-04 12:35] VITALS: BP 146/101; PULSE 106; RESP 16; TEMP 36.4; O2SAT 100
--- NOTE | 2023-09-04 13:55 | EDS_ITS ---
HPI History of Present Illness Chief Complaint: Abscess Narrative Narrative: 42-year-old female presenting with redness and swelling to the right leg. It is just below the knee.There is pain noted over the posterior aspect of the shoulder blade laterally. Believes it might of been from shaving. She states been going on for couple of days. She has been doing Epsom salt soaks. She also used warm compresses. She feels the area is getting redder. No systemic signs or symptoms. PFSH PFSH Home Medications ?Medication ?Instructions ?Recorded ?Last Taken ?Type Ferrous Sulfate 325 mg PO BID 11/05/14 11/25/14 20:00 History one cephalexin 500 mg capsule 500 mg PO BID 5 days #10 caps 06/14/23 Unknown Rx hydroxyzine HCl 25 mg tablet 25 mg PO BID PRN PRN anxiety 06/14/23 Unknown H istory ketorolac 10 mg tablet 10 mg PO Q8H PRN pain 3 days #10 06/14/23 Unknown Rx tabs ondansetron 4 mg disintegrating 4 mg PO Q6H PRN PRN Nausea #10 tabs 06/14/23 Unknown Rx tablet oxycodone-acetaminophen 5 mg-325 1 tab PO Q4H PRN pain 3 days #12 06/14/23 Unknown Rx mg tablet (Percocet) tabs sulfamethoxazole 800 1 tab PO BID #20 tabs 09/04/23 Unknown Rx mg-trimethoprim 160 mg tablet (Bactrim DS) Allergy/AdvReac Type Severity Reaction Status Date / Time No Known Allergies Allergy Verified 09/04/23 12:36 Social History Smoking Status: Never smoker ROS ROS ED Constitutional Constitutional ED: Denies chills, fever(s) or sweats Eyes Eyes: Denies blurry vision or change in vision ENT ENT ED: Denies ear pain or sore throat Cardiovascular Cardiovascular: Denies chest pain, palpitations or racing heartbeat Respiratory/Chest Respiratory/Chest: Denies cough, dyspnea or sputum Gastrointestinal Gastrointestinal: Denies abdominal pain, constipation, diarrhea, nausea or vomiting Genitourinary Genitourinary ED: Denies dysuria, hematuria or urinary frequency Musculoskeletal Musculoskeletal: Denies arthralgias, myalgias or neck pain Integumentary Reports rash; Denies abscess or Abrasions Neurologic Neurologic: Denies headache(s), paresthesias or weakness Psychiatric Psychiatric: Denies anxiety, depression, suicidal ideation or suicidal thoughts Endocrine Endocrinology: Denies polydipsia or polyuria EXAM Physical Exam Const Vital Signs: 09/04/23 12:33 09/04/23 12:35 Temperature 97.6 F L 97.6 F L Temperature Source Temporal Temporal Pulse Rate 111 H 106 H Respiratory Rate 16 16 Blood Pressure 146/101 H 146/101 H Blood Pressure Mean 116 116 Pulse Ox 100 100 Oxygen Delivery Method Room Air Room Air Positive well nourished General Appearance ED: NAD HEENT Reports moist mucous membranes Negative for trauma or tenderness Eyes PERRL and EOMs intact bilaterally Chest Wall inspection of chest normal Resp normal respiratory effort Cardio regular rate and regular rhythm Extremity Extremity Narrative: There is a 1.0 cm eschar noted over the proximal tibia midline. There is surrounding erythema and induration. No fluctuance. No drainage. No crepitance Neuro oriented x3 and CN's II-XII intact bilaterally Sensorium / Orientation: alert Motor Exam: strength 5/5 throughout Psych mental status grossly normal Mood & Affect: anxious Skin Skin Narrative: As noted above MDM MDM MDM Narrative Medical decision making narrative: Patient presenting with cellulitic change on the right tibial region. There is a small area that looks like a scab. There is no fluctuance or mass. Nothing that needs incision and drainage. Patient will be started on Bactrim with first dose given in the ED. Hot compresses or soaking the wound. Return precautions were discussed. Impression: 1. Right leg cellulitis Lab Data Attestation: I reviewed the patient's lab results. Discharge Plan Triage Chief Complaint: Abscess ED Provider: Kelby Quesada Dx/Rx/DC Orders Instructions: ED Cellulitis Prescriptions: New sulfamethoxazole-trimethoprim [Bactrim DS] 800-160 mg tablet 1 tab PO BID Qty: 20 0RF No Action Ferrous Sulfate 325 mg PO BID hydroxyzine HCl 25 mg tablet 25 mg PO BID PRN PRN (Reason: anxiety) oxycodone-acetaminophen [Percocet] 5-325 mg tablet 1 tab PO Q4H PRN (Reason: pain) 3 Days Qty: 12 0RF ondansetron [ondansetron] 4 mg tablet,disintegrating 4 mg PO Q6H PRN PRN (Reason: Nausea) Qty: 10 0RF ketorolac 10 mg tablet 10 mg PO Q8H PRN (Reason: pain) 3 Days Qty: 10 0RF cephalexin 500 mg capsule 500 mg PO BID 5 Days Qty: 10 0RF Primary Care Provider: Devyn Alatorre Referrals: Devyn Alatorre MD [Primary Care Provider] - Print Language: Maltese Disposition Disposition: Home, Self Care
[2023-09-04 14:20] VITALS: BP 138/90; PULSE 100; RESP 18; TEMP 36.6; O2SAT 100
[2023-09-04] MEDS: Smz/Tmp Ds Tablet 1 TABLET PO (14:26)
== END 2023-09-04 14:28 | disposition home or self-care (01) ==
PROVIDERS: Emergency Provider Student in an Organized Health Care Education/Training Program; PCP Family Medicine; Visit Provider Student in an Organized Health Care Education/Training Program
DX: L03.115 Cellulitis of right lower limb (principal)
CPT/HCPCS: 99282

== ENCOUNTER → 2023-10-27 | Outpatient (CLI) | payer MEDICAID, SELFPAY ==
--- NOTE | 2023-10-27 14:02 | BI_ITS ---
MAMMOGRAPHY - BILATERAL SCREENING REASON FOR EXAM: Female, 43 years old. Routine annual screening examination. PERTINENT HISTORY: Mother with breast cancer. Grandmother with breast cancer. TECHNIQUE: Digital bilateral breast juan m (3D mammographic acquisition) in the CC and MLO projections. 2-D mediolateral oblique (MLO) and craniocaudad (CC) views of both breasts were obtained. CAD: Full Field Digital Mammography with Computer Added Detection was performed. COMPARISON: Comparison is made with prior study August 05, 2022 and July 21, 2021. FINDINGS: Breast Composition: The breasts are heterogeneously dense, which may obscure small masses. There are no dominant masses or suspicious calcifications. No other significant abnormalities are identified. There has been no significant change since the prior study. BI/SCRN MAMM (CAD)W/JUAN M BILAT IMPRESSION: Stable bilateral screening mammogram. Yearly follow-up mammogram recommended. (A) ASSESSMENT CATEGORY: BIRADS Category 1: Negative. A letter regarding these results will be sent to the patient by the facility within 30 days. Approximately 10% of breast cancers are not detected by mammography. A normal mammogram should not delay biopsy of a clinically suspicious abnormality. [id number] Electronically Signed: Jamir Grimm MD at 14:58 EDT ,
== END | disposition home or self-care (01) ==
LOC: OPBI 14:02
PROVIDERS: PCP Family Medicine; Referring Provider Family Medicine; Visit Provider Family Medicine
DX: Z12.31 Encounter for screening mammogram for malignant neoplasm of breast (principal); Z80.3 Family history of malignant neoplasm of breast
CPT/HCPCS: 77063; 77067

== ENCOUNTER → 2024-10-29 | Outpatient (CLI) | payer MEDICAID, SELFPAY ==
--- NOTE | 2024-10-29 13:27 | BI_ITS ---
EXAM: SCRN MAMM (CAD)W/JUAN M BILAT DATE: 10/29/2024 CLINICAL HISTORY: F, Age 44 y/o , SCREENING Mother with breast cancer. Grandmother with breast cancer. TECHNIQUE: SCRN MAMM (CAD)W/JUAN M BILAT COMPARISON: Prior exam(s) dated October 27, 2023.. FINDINGS: TISSUE DENSITY: The breasts are heterogeneously dense, which may obscure small masses. Bilateral Breast Mammographic Findings: No significant masses, calcifications or other abnormalities are identified. No suspicious masses, areas of developing architectural distortion, or suspicious calcifications. There has been no significant interval change. BI/SCRN MAMM (CAD)W/JUAN M BILAT IMPRESSION: Stable examination. OVERALL FINAL ASSESSMENT BI-RADS 1: NEGATIVE. RECOMMENDATION: Routine annual follow-up in 1 Year A letter with findings and recommendations will be mailed to the patient. Reading Location: [id number]
== END | disposition home or self-care (01) ==
LOC: OPBI 13:26
PROVIDERS: PCP Family Medicine; Referring Provider Family Medicine; Visit Provider Family Medicine
DX: Z12.31 Encounter for screening mammogram for malignant neoplasm of breast (principal)
CPT/HCPCS: 77063; 77067